=== PATIENT | male | born 1985 | race Caucasian/White ===

== ENCOUNTER 2016-10-13 00:27 | Emergency (ER) | payer BC ==
[~2016-10-13] VITALS: Ht 170.2 cm; Wt 90.7 kg
[2016-10-13 00:35] VITALS: BP 132/72
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
--- NOTE | 2016-10-13 01:04 | NUR ---
PT TAKEN TO OF
--- NOTE | 2016-10-13 01:04 | NUR ---
Dr. Quintanilla evaluating patient at bedside.
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
[2016-10-13] MEDS ORDERED: IBUPROFEN 800 MG TAB PO ONE (01:10)
--- NOTE | 2016-10-13 01:24 | NUR ---
PT TAKEN TO CT
[2016-10-13] MEDS ORDERED: MORPHINE SULFATE 4 MG/ML SYR IM ONE (01:50)
[2016-10-13 02:24] VITALS: BP 100/66
--- NOTE | 2016-10-13 02:24 | NUR ---
Patient discharged BY ER MD with v/s stable. Written and verbal after care instructions given and explained BY ER MD. Patient alert, oriented and verbalized understanding of instructions. Ambulatory with steady gait. All questions addressed prior to discharge. ID band removed. Patient advised to follow up with PMD TOMORROW OR RETURN TO ER IF CONDITION WORSENS. Rx of TRAMADOL given. Patient educated on indication of medication including possible reaction and side effects. Opportunity to ask questions provided and answered.
== END 2016-10-13 02:24 | disposition home or self-care (01) ==
LOC: MED 00:27
DX: S00.83XA Contusion of other part of head, initial encounter (principal); Z88.2 Allergy status to sulfonamides; Z88.8 Allergy status to other drugs, medicaments and biological substances; Y04.2XXA Assault by strike against or bumped into by another person, initial encounter; Y93.89 Activity, other specified; Y92.89 Other specified places as the place of occurrence of the external cause; Y99.8 Other external cause status
CPT/HCPCS: 70486; 96372; 99284; J2270

== ENCOUNTER 2020-02-23 20:31 | Emergency (ER) | payer MEDICAID ==
[~2020-02-23] VITALS: Ht 170.2 cm; Wt 83.9 kg
[2020-02-23 20:40] VITALS: BP 119/61
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
--- NOTE | 2020-02-23 21:09 | NUR ---
RAD AT BEDSIDE
--- NOTE | 2020-02-23 21:30 | NUR ---
PT REQUESTING PAIN MEDICATION DUE TO 9/10 PERSISTENT PAIN. CATHID MADE AWARE.
[2020-02-23] MEDS ORDERED: HYDROcodone/APAP 5/325 MG 1 TAB TAB PO ONE (21:40)
[2020-02-23] MEDS ORDERED: LIDOCAINE/EPI 1% 1:100000 20 ML VIAL INJ ONE (21:45)
--- NOTE | 2020-02-23 22:09 | NUR ---
ERMD AT BEDSIDE PERFORMING LAC REPAIR.
[2020-02-23 23:00] VITALS: BP 119/61
== END 2020-02-23 23:00 | disposition home or self-care (01) ==
LOC: MED 20:31
DX: S51.811A Laceration without foreign body of right forearm, initial encounter (principal); S80.211A Abrasion, right knee, initial encounter; S90.811A Abrasion, right foot, initial encounter; F12.90 Cannabis use, unspecified, uncomplicated; Z88.2 Allergy status to sulfonamides; Z91.048 Other nonmedicinal substance allergy status; V29.9XXA Motorcycle rider (driver) (passenger) injured in unspecified traffic accident, initial encounter; Y93.I9 Activity, other involving external motion; Y92.89 Other specified places as the place of occurrence of the external cause; Y99.8 Other external cause status
CPT/HCPCS: 12001; 73090; 73562; 73630; 99284; J2001; Q0092

== ENCOUNTER 2020-11-30 16:02 | Emergency (ER) | payer MEDICAID ==
[~2020-11-30] VITALS: Ht 170.2 cm; Wt 84.4 kg
--- NOTE | 2020-11-30 16:18 | NUR ---
CALLED PT FROM WAITING AREA, NO RESPONSE.
[2020-11-30 16:38] VITALS: BP 126/82
--- NOTE | 2020-11-30 16:40 | NUR ---
Patient transported to [facility] via W/C.
--- NOTE | 2020-11-30 16:52 | NUR ---
PT PLACED IN BED 6 BY X-RAY VIA W/C.
--- NOTE | 2020-11-30 16:52 | NUR ---
Patient returned from Xray via wheelchair.
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
[2020-11-30] MEDS ORDERED: KETOROLAC 30 MG/ML VIAL IM ONE (18:20)
[2020-11-30] MEDS ORDERED: NAPR-54 PO (18:21)
[2020-11-30 18:45] VITALS: BP 126/82
== END 2020-11-30 18:45 | disposition home or self-care (01) ==
LOC: MED 16:02
DX: S90.121A Contusion of right lesser toe(s) without damage to nail, initial encounter (principal); E78.5 Hyperlipidemia, unspecified; Z88.2 Allergy status to sulfonamides; Z88.8 Allergy status to other drugs, medicaments and biological substances; Z79.899 Other long term (current) drug therapy; W22.03XA Walked into furniture, initial encounter; Y93.89 Activity, other specified; Y92.89 Other specified places as the place of occurrence of the external cause; Y99.8 Other external cause status
CPT/HCPCS: 73630; 73660; 99283; J1885

== ENCOUNTER 2020-12-20 00:23 | Emergency (ER) | payer MEDICAID ==
[~2020-12-20] VITALS: Ht 170.2 cm; Wt 85.7 kg
[~2020-12-20 00:23] MED LIST: NAPR-54 PO
[2020-12-20 00:31] VITALS: BP 120/72
[2020-12-20 02:10] VITALS: BP 120/72
[2020-12-20] MEDS ORDERED: LIDOCAINE/EPI 1% 1:100000 20 ML VIAL INJ ONE (02:35)
[2020-12-20] MEDS ORDERED: CLINDAMYCIN 150 MG CAP PO ONE (02:40)
[2020-12-20] MEDS ORDERED: ACET-9527 PO (02:41)
[2020-12-20] MEDS ORDERED: NAPR-54 PO ×2 (02:41→03:40)
[2020-12-20] MEDS ORDERED: CLIN-25 PO (02:41)
[2020-12-20] MEDS ORDERED: CLIN-223 PO (03:40)
[2020-12-20] MEDS ORDERED: ACET-8386 PO (03:40)
== END 2020-12-20 03:40 | disposition home or self-care (01) ==
LOC: MED 00:23
DX: L02.31 Cutaneous abscess of buttock (principal); Z79.899 Other long term (current) drug therapy; Z88.2 Allergy status to sulfonamides; Z88.8 Allergy status to other drugs, medicaments and biological substances
CPT/HCPCS: 46040; 81002; 87070; 87075; 87205; 99284; J2001

== ENCOUNTER 2020-12-24 05:52 | Emergency (ER) | payer MEDICAID ==
[~2020-12-24] VITALS: Ht 170.2 cm; Wt 83.5 kg
[~2020-12-24 05:52] MED LIST changes: +ACET-8386 PO; +CLIN-223 PO
[2020-12-24 05:59] VITALS: BP 122/84
--- NOTE | 2020-12-24 05:59 | NUR ---
TO BED AMBULATORY
--- NOTE | 2020-12-24 06:25 | NUR ---
VIRGIL AT BEDSIDE FOR MEDICAL EVALUATION . Back Tender Pulp Drier , Shannon NEAL, accompanied patient for wound check.
--- NOTE | 2020-12-24 06:27 | NUR ---
Pt assessment completed by VIRGIL Quintanilla, no nursing interventions needed at this time.
[2020-12-24 06:28] VITALS: BP 122/84
--- NOTE | 2020-12-24 06:28 | NUR ---
Patient discharged with v/s stable. Written and verbal after care instructions given and explained by Dr. Quintanilla. Patient verbalized understanding. Ambulatory with steady gait. All questions addressed prior to discharge. Advised to follow up with PMD.
== END 2020-12-24 06:28 | disposition home or self-care (01) ==
LOC: MED 05:52
DX: K61.1 Rectal abscess (principal); F17.210 Nicotine dependence, cigarettes, uncomplicated; Z88.2 Allergy status to sulfonamides; Z88.8 Allergy status to other drugs, medicaments and biological substances; Z79.899 Other long term (current) drug therapy; Z71.6 Tobacco abuse counseling
CPT/HCPCS: 99281